=== PATIENT | female | born 1980 | race Caucasian/White ===

== ENCOUNTER 2016-06-21 18:50 | Day surgery (SDC) | payer OTHER ==
[~2016-06-21 18:50] MED LIST: BACTRIM DS TAB1 EAC2 PO; BENADRYL25 M3 PO; BUSPAR10 MG PO; BUSPAR15 MG PO; CATAFLAM50 MG PO; EFFEXOR XR37.5 M1 PO; EFFEXOR XR75 M1 PO; EPIPEN 2-P0.3 MG/0.3 IJ; EPIPEN AUTO-INJE1 EA IM; EPIPEN0.3 MG/0.1 IM; HYDROCODON-ACE1 EA16 PO; HYDROXYZINE HCL10 MG PO; IRON1 TA1; LEXAPRO10 MG; LEXAPRO20 M1 PO; LEXAPRO20 MG; LORTAB 5/500 TA1 TAB PO; METHERGINE0.2 MG PO; MULTIVITAMIN1 TAB; MULTIVITAMIN1 TAB PO; NORCO 5/325 TAB1 TAB PO; NORCO 5/3251 TAB PO; OMEPRAZOLE20 MG PO; PERCOCET 5/3251 TAB PO; PHENERGAN25 MG PO; PREDNISONE20 M1 PO; PREDNISONE20 MG PO; PRENATAL VITAMI1 TAB; PROMETRIUM; PROMETRIUM200 MG; PROVERA10 MG PO; PYRIDIUM200 M2 PO; REQUIP0.5 MG; REQUIP1 MG; SERTRALINE HCL100 M1 PO; SLOW FE160 MG; TRINESSA1 TAB PO; ZOFRAN ODT4 MG/UDTAB PO; ZOLOFT100 MG PO; ZOLOFT50 MG PO
[2016-06-21 22:31] LABS: URINE APPEARANCE CLEAR; URINE BILIRUBIN NEGATIVE (NEG); URINE BLOOD LARGE (NEG); URINE COLOR YELLOW; URINE GLUCOSE (UA) NEGATIVE (NEG); URINE KETONE NEGATIVE (NEG); URINE LEUKOCYTE ESTERASE NEGATIVE (NEG); URINE NITRITE NEGATIVE (NEG); URINE PROTEIN NEGATIVE (NEG)
[2016-06-21 22:44] LABS: URINE EPITHELIAL CELLS RARE /[HPF] (0-10); URINE RBC 50-60 /[HPF] (0-5)
[2016-06-22] MEDS ORDERED: BUSPIRONE HCL15 M2 PO (00:45)
[2016-06-22 01:52] LABS: BASO % 0.5 % (0-2); EOSINOPHIL ABSOLUTE COUNT 0.4 tho/cmm (0.0-0.7); HCT-HEMATOCRIT 36.7 % (34.0-49.0); HGB-HEMOGLOBIN 12.4 gm/dl (12.0-15.5); IMMATURE GRANULOCYTES ABSOLUTE 0.01 tho/cmm (0-0.03); IMMATURE GRANULOCYTES PERCENT 0.1 % (0-0.3); LYMPH % 29.8 % (20-45); LYMPH ABSOLUTE COUNT 2.4 tho/cmm (0.8-4.5); MCH (MEAN CORPUSCULAR HGB) 29.4 pg (28.0-32.0); MCHC MEAN CORPUSCULAR HGB CONC 33.8 % (32.0-36.0); MEAN PLATELET VOLUME 9.8 cmc (9.4-12.4); MONO % 6.7 % (0-12); MONOCYTE ABSOLUTE COUNT 0.5 tho/cmm (0.0-1.2); NEUTROPHIL ABSOLUTE COUNT 4.7 tho/cmm (1.6-8.0); NEUTROPHIL-AUTOMATED 4.7 tho/cmm (1.6-8.0); NEUTROPHILS % 57.9 % (40-80); PLATELET COUNT 314 tho/cmm (150-450); RED BLOOD COUNT 4.22 mil/cmm (4.00-5.20); RED CELL DISTRIBUTION WIDTH 12.9 % (12.4-16.4); WHITE BLOOD COUNT 8.1 tho/cmm (4.0-10.0)
[2016-06-22 02:16] LABS: PREGNANCY-SERUM NEGATIVE (NEGATIVE)
[2016-06-22 02:17] LABS: ALB/GLOB RATIO 0.9 (0.8-2.0); ALBUMIN 3.3 g/dl (3.5-5.0); ALKALINE PHOSPHATASE 103 U/L (33-138); ALT/SGPT 113 U/L (12-78); ANION GAP 14 mmol/L (0-20); AST/SGOT 154 U/L (10-40); BILIRUBIN,TOTAL 0.5 mg/dl (0-1.5); BLOOD UREA NITROGEN 9 mg/dl (6-24); CALCIUM 8.2 mg/dl (8.5-10.5); CARBON DIOXIDE-VENOUS 25 mmol/L (22-32); CHLORIDE 107 mmol/l (96-110); CREATININE 0.57 mg/dl (0.50-1.10); GLUCOSE 108 mg/dL (70-110); POTASSIUM 3.7 mmol/L (3.7-5.1); SODIUM 142 mmol/L (135-145); eGFR VALUE FOR BLACK >90 mL/Min
[2016-06-23 07:53] LABS: URINE BILIRUBIN NEGATIVE (NEG); URINE BLOOD LARGE (NEG); URINE GLUCOSE (UA) MODERATE (NEG); URINE KETONE NEGATIVE (NEG); URINE LEUKOCYTE ESTERASE NEGATIVE (NEG); URINE NITRITE NEGATIVE (NEG); URINE PROTEIN NEGATIVE (NEG)
[2016-06-23 08:00] LABS: URINE APPEARANCE CLEAR; URINE COLOR YELLOW
[2016-06-23 08:04] LABS: URINE BACTERIA 2+; URINE WBC 0-1 /[HPF] (0-5)
[2016-06-23] MEDS ORDERED: NORCO 5-325 TA1 EACH PO (13:36)
[2016-06-23] MEDS ORDERED: FLOMAX0.4 M1 PO (13:36)
== END 2016-06-23 16:10 ==
LOC: EDMED 18:50 → 5EB 06-22 02:54 → ORW 06-22 19:10 → PACU 06-22 20:19 → 5EB 06-22 21:10
PROVIDERS: Hospitalist; Physician Assistant
PROC: 0TF4XZZ Fragmentation in Left Kidney Pelvis, External Approach (ICD-10-PCS; principal; 2016-06-22)
PROC: 0TF7XZZ Fragmentation in Left Ureter, External Approach (ICD-10-PCS; 2016-06-22)
DX: N13.2 Hydronephrosis with renal and ureteral calculous obstruction (principal); E66.01 Morbid (severe) obesity due to excess calories; F41.9 Anxiety disorder, unspecified; F32.9 Major depressive disorder, single episode, unspecified; G25.81 Restless legs syndrome; Z79.899 Other long term (current) drug therapy; Z88.1 Allergy status to other antibiotic agents; Z90.49 Acquired absence of other specified parts of digestive tract; Z98.890 Other specified postprocedural states
CPT/HCPCS: G0378; J1170; J1885; J1956; J2270; J2405; J7030